=== PATIENT | female | born 1990 | race Hispanic/Latino ===

== ENCOUNTER 2017-12-17 14:38 | Observation (INO) | payer OTHER ==
[2017-12-17 14:46] VITALS: BP 117/84; PULSE 73; RESP 18; TEMP 97.3; O2SAT 99
[2017-12-17] MEDS ORDERED: Sodium Chloride 0.9% 1,000 ML IV STA (15:11)
--- NOTE | 2017-12-17 15:20 | ED PDOC ---
HPI: Abdomen Time Seen by Provider: 12/17/17 14:58 Chief Complaint (Nursing): Abdominal Pain Chief Complaint (Provider): Abdominal bloating History Per: Patient History/Exam Limitations: no limitations Onset/Duration Of Symptoms: Persistent Outside of [place] travel?: No Current Symptoms Are (Timing): Still Present Location Of Pain/Discomfort: Diffuse, Suprapubic Quality Of Discomfort: "Pain" Associated Symptoms: Loss Of Appetite, Urinary Symptoms Additional Complaint(s): 27yo female, with history of Graves disease and TBI, presents to the ED with complaints of abdominal bloating, generalized weakness, and loss of appetite for the past 9 months. She reports the symtpoms started out as "vauge" but over time have progressed in intensity. Patient also states "I'm not " and that there is "some ball like thing" in her uterus. She reports painful intercourse as well. Patient states she has not followed up with her PCP as she moved here from [place] recently. She denies any associated vomiting, diarrhea, chest pain, shortness of breath, leg pain, vaginal discharge, vaginal bleeding, hematuria or dysuria. Of note, patient states she is currently on control. Abnormal Vaginal Bleeding: No Past Medical History Reviewed: Historical Data, Nursing Documentation, Vital Signs Vital Signs: Last Vital Signs Temp 97.3 F L 12/17/17 14:42 Pulse 73 12/17/17 14:42 Resp 18 12/17/17 14:42 BP 117/84 12/17/17 14:42 Pulse Ox 99 12/17/17 17:33 - Medical History Other PMH: graves disease, TBI - Surgical History Surgical History: No Surg Hx - Family History Family History: States: No Known Family Hx - Allergies Allergies/Adverse Reactions: Allergies Allergy/AdvReac Type Severity Reaction Status Date / Time Penicillins Allergy ANAPHYLAXIS Verified 12/17/17 14:47 Sulfa (Sulfonamide Allergy RASH Verified 12/17/17 14:47 Antibiotics) Review of Systems ROS Statement: Except As Marked, All Systems Reviewed And Found Negative Constitutional: Positive for: Weakness Cardiovascular: Negative for: Chest Pain Respiratory: Negative for: Shortness of Breath Gastrointestinal: Positive for: Other (abdominal bloating). Negative for: Vomiting, Diarrhea Genitourinary Female: Negative for: Hematuria, Vaginal Discharge, Vaginal Bleeding Physical Exam - Reviewed Nursing Documentation Reviewed: Yes Vital Signs Reviewed: Yes - Physical Exam Appears: Positive for: Non-toxic, No Acute Distress Head Exam: Positive for: ATRAUMATIC, NORMAL INSPECTION, NORMOCEPHALIC Skin: Positive for: Normal Color, Warm Eye Exam: Positive for: Normal appearance Neck: Positive for: Supple Cardiovascular/Chest: Positive for: Regular Rate, Rhythm. Negative for: Murmur Respiratory: Positive for: Normal Breath Sounds. Negative for: Wheezing, Respiratory Distress Pulses-Dorsalis Pedis (L): 2+ Pulses-Dorsalis Pedis (R): 2+ Gastrointestinal/Abdominal: Positive for: Soft, Tenderness (lower pelvic/ suprapubic tenderness ) Pelvic Exam: Positive for: External Exam Normal (no labial tenderness or swelling noted) Back: Positive for: Normal Inspection. Negative for: L CVA Tenderness, R CVA Tenderness Extremity: Positive for: Normal ROM. Negative for: Tenderness, Pedal Edema, Deformity, Swelling Neurologic/Psych: Positive for: Alert, Oriented. Negative for: Motor/Sensory Deficits - Laboratory Results Result Diagrams: 12/17/17 15:35 12/17/17 15:35 Interpretation Of Abn Labs: 0.02 tsh - ECG O2 Sat by Pulse Oximetry: 99 (RA) Pulse Ox Interpretation: Normal - CT Scan/US US Other Rad Studies (CT/US): Read By Radiologist Other Rad Interpretation: no acute - Progress ED Course And Treament: 1840: Stable. Pt. with graves dz, but taking synthroid. Likely cause of elevated thyroid hormone. Will hold med. Spoke with Dr. Puentes. Will admit tele obs. Dr. Menjivar on consult. AAOx3. Medical Decision Making Medical Decision Making: Impression: Abdominal discomfort Plan: -- Labs -- US Transvaginal -- IV Fluids -- Zofran 4mg IV Patient declined pain medications. Time: 1658 US Transvaginal FINDINGS: UTERUS: Uterus measures approximately 5.0 x 2.5 x 4.0 cm. Normal in size and appearance. No fibroid or other mass lesion seen. ENDOMETRIUM: Measures 9 mm in diameter. Unremarkable. CERVIX: No cervical abnormality identified. RIGHT OVARY: Right ovary measures approximate 2.7 x 2.6 x 2.8 cm. No solid mass. Normal flow. Prominent follicle or small cyst measures 1.1 cm in greatest dimension. LEFT OVARY: Left ovary measures approximately 2.0 x 2.7 x 2 .5cm. No solid mass. Normal flow. 2 prominent follicles or tiny cysts present, the largest measuring 1.2 cm in greatest diameter and the second measuring 7 mm in diameter. FREE FLUID: No significant free fluid noted. OTHER FINDINGS: None. IMPRESSION: Prominent follicles or small cysts both ovaries as outlined above. Scribe Attestation: Documented by Keyona Edwards acting as a scribe for Chava Hinojosa MD. Provider Attestation: All medical record entries made by the Scribe were at my direction and personally dictated by me. I have reviewed the chart and agree that the record accurately reflects my personal performance of the history, physical exam, medical decision making, and the department course for this patient. I have also personally directed, reviewed, and agree with the discharge instructions and disposition. Disposition - Clinical Impression Clinical Impression: Hyperthyroidism - Patient ED Disposition Is Patient to be Admitted: Yes Counseled Patient/Family Regarding: Studies Performed, Diagnosis - Disposition Disposition Time: 18:42 Condition: STABLE - Pt Status Changed To: Hospital Disposition Of: Observation - POA Present On Arrival: None
[2017-12-17] MEDS ORDERED: Povidone Iodine Oint 10% Foilpak UD ONE (15:49)
[2017-12-17 16:30] LABS: BASO # 0.1 K/uL (0.0-0.2); BASO % 1.3 % (0.0-2.0); EOS # 0.2 K/uL (0.0-0.7); EOS % 3.3 % (0.0-4.0); HEMOGLOBIN 11.3 g/dL (12.0-16.0); LYMPH # 1.8 K/uL (1.0-4.3); LYMPH % 25.3 % (20.0-40.0); MEAN CORPUSCULAR HEMOGLOBIN 20.3 pg (27.0-31.0); MEAN CORPUSCULAR HGB CONC 32.6 g/dL (33.0-37.0); MEAN PLATELET VOLUME 11.3 fl (7.2-11.7); MONO # 0.4 K/uL (0.0-0.8); MONO % 6.3 % (0.0-10.0); NEUT # 4.5 K/uL (1.8-7.0); NEUT % 63.8 % (50.0-75.0); NRBC % 0.2 % (0.0-0.0); RBC 5.57 Mil/uL (3.80-5.20); RED CELL DISTRIBUTION WIDTH 15.3 % (11.5-14.5); WHITE BLOOD COUNT 7.1 K/uL (4.8-10.8)
[2017-12-17 16:48] LABS: ALB/GLOB RATIO 1.4 (1.0-2.1); ALBUMIN 4.4 g/dL (3.5-5.0); CALCIUM 9.8 mg/dL (8.4-10.2); GFR AFRICAN-AMERICAN > 60; GFR NON-AFRICAN AMERICAN > 60; LIPASE 99 U/L (23-300)
--- NOTE | 2017-12-17 17:00 | US ---
HISTORY: Pelvic pain COMPARISON: None available. TECHNIQUE: FINDINGS: UTERUS: Uterus measures approximately 5.0 x 2.5 x 4.0 cm. Normal in size and appearance. No fibroid or other mass lesion seen. ENDOMETRIUM: Measures 9 mm in diameter. Unremarkable. CERVIX: No cervical abnormality identified. RIGHT OVARY: Right ovary measures approximate 2.7 x 2.6 x 2.8 cm. No solid mass. Normal flow. Prominent follicle or small cyst measures 1.1 cm in greatest dimension. LEFT OVARY: Left ovary measures approximately 2.0 x 2.7 x 2 .5cm. No solid mass. Normal flow. 2 prominent follicles or tiny cysts present, the largest measuring 1.2 cm in greatest diameter and the second measuring 7 mm in diameter. FREE FLUID: No significant free fluid noted. OTHER FINDINGS: None. IMPRESSION: Prominent follicles or small cysts both ovaries as outlined above.
[2017-12-17 17:31] LABS: MEAN CELL VOLUME 62.2 fl (81.0-99.0)
[2017-12-17 17:43] LABS: ALT/SGPT 21 U/L (9-52); AST/SGOT 31 U/L (14-36); BLOOD UREA NITROGEN 9 mg/dl (7-17)
--- NOTE | 2017-12-18 06:58 | CON ---
ENDOCRINOLOGY CONSULTATION DATE: LOCATION: ER holding. HISTORY OF PRESENT ILLNESS: This a 27-year-old female with known history of Graves disease and hyperthyroidism with no recent endocrine followup and has now been admitted because of progressively worsening lower abdominal pain with concomitant generalized body weakness and progressive weight loss as noted. She is being referred now for endocrine evaluation and management. PAST MEDICAL HISTORY: History of Graves disease and hyperthyroidism, previously being followed closely in [place] by her Neuroendocrinologist there, but upon transfer here to [place] has had no recent lab checkups or follow up otherwise. She was placed previously on levothyroxine medications at that time. Admits to progressive generalized body weakness and weight loss over the last 9 months or more prior to this admission. FAMILY HISTORY: Positive for hypertension and heart disease. No known thyroid endocrinopathy. SOCIAL HISTORY: The patient has supportive family. No known substance use. REVIEW OF SYSTEMS: Admits to progressive dizziness and lightheadedness, worse in the last few days prior to admission. Also admits to generalized body weakness with easy fatigability and tiredness and suboptimal energy level. Also admits to marked insomnia and disrupted sleep patterns. No chest pains, but admits to episodic bouts of palpitations with episodic shortness of breath especially on exertion. Her oral intake has been variable with nausea and dyspepsia and anorexia with hyper-defecation. Also admits to recent lower abdominal pains as noted. PHYSICAL EXAMINATION GENERAL: This is an asthenic female in no apparent distress. VITAL SIGNS: Blood pressure of 140/80, pulse of 90 beats per minute regular, temperature 98, respirations 20, height is 5 feet 7 inches and weight is 124 pounds. HEENT: Head normocephalic. Eyes anicteric with pink conjunctivae. Funduscopy not possible at this time. Ears, nose and throat otherwise normal. NECK: Supple. Thyroid gland shows nodular thyromegaly, which is firm and nontender. No cervical adenopathy noted. HEART: Hyperdynamic precordium. S1 and S2 is rapid and regular. LUNGS: Clear to auscultation. ABDOMEN: Flat and soft with positive bowel sounds. EXTREMITIES: No peripheral edema. Pulses are +2 bilaterally. LABORATORY DATA: Chemistry showed a BUN of 9, sodium 140, potassium 4.9, chloride 104, CO2 of 21, glucose 84 and creatinine 0.6. Her TSH level is 0.02. ASSESSMENT: This is a 27-year-old female with significant history of Graves disease and hyperthyroidism and presents here with constitutional symptoms and hyperadrenergic manifestations typical of overt hyperthyroidism and also has gastrointestinal related symptoms as noted thereof. The etiology as to be ascertained as to whether we are dealing with the irritable bowel like syndrome typical of people with persistent hyperthyroxinemia versus a intrinsic gastrointestinal pathology and/or even a gynecologic pathology at this time. Subsequent workup in both gastrointestinal and genitourinary/gynecologic diagnostic possibilities have to be undertaken at this time. This can be done on the outpatient also as noted. PLAN OF MANAGEMENT: As the patient remains clinically and biochemically hyperthyroxinemic with a suppressed TSH level of 0.02. We will presume that the patient has overt hyperthyroidism both historically, clinically and biochemically otherwise. It is the fact that she was previously placed on levothyroxine would only mean that she has reverted back to a relapse of her hyperthyroidism necessitating medical therapy with thiourea otherwise. We will obtain a comprehensive thyroid hormonal profile with a total and free T4 and TSH to be done and to include thyroid antibodies with a thyroid peroxidase antibody and a thyroid stimulating immunoglobulin to confirm and/or indicate the presence of thyroid autoimmunity. We will start her right away on Tapazole given as 10 mg b.i.d. and we will titrate incrementally as we obtain a complete comprehensive thyroid hormonal profile as ordered. We will also obtain a thyroid ultrasound to fully as ascertain her thyroid lobe dimensions. We will follow and advise accordingly. ADDENDUM: The patient actually has decided to sign out against medical advice tonight despite a lengthy discussion regarding the imperative need for cardiac monitoring and metabolic testing and also to fully ascertain the extent of her hyperthyroid condition and the need for closer metabolic management especially in the light of the aforementioned hyperadrenergic and constitutional manifestation. She has insisted that she will follow up with her previous [facility] on the outpatient who are actually based in [facility]. Maya Menjivar MD
== END 2017-12-17 20:30 | disposition left against medical advice (07) ==
LOC: H.ER 14:38 → H.ERHOLD 18:41
PROVIDERS: ADMIT Internal Medicine Pulmonary Disease; ATTEND Internal Medicine Pulmonary Disease
DX: E05.90 Thyrotoxicosis, unspecified without thyrotoxic crisis or storm (principal); I10 Essential (primary) hypertension; N94.10 Unspecified dyspareunia; E05.00 Thyrotoxicosis with diffuse goiter without thyrotoxic crisis or storm
CPT/HCPCS: 76830; 80053; 81025; 83690; 84443; 85025; 99282; G0378; J7040